=== PATIENT | male | born 2005 | race Caucasian/White ===

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

== ENCOUNTER → 2025-05-25 | Outpatient (CLI) | payer OTHER | LOC: ORTHO 02:10 | PROVIDERS: ATTEND Orthopaedic Surgery | DX: M25.532 Pain in left wrist (principal); M25.531 Pain in right wrist ==

== ENCOUNTER → 2025-06-09 | Day surgery (SDC) | payer OTHER ==
[~2025-06-09] VITALS: Ht 170.1 cm; Wt 93.0 kg
[~2025-06-09] MED LIST changes: +Lidocaine Hydrochloride 30 ML VIAL ONE; +Lidocaine Hydrochloride 5 ML VIAL IV ONE; +Midazolam Hydrochloride 2 MG/2 ML VIAL IV ONE; +PROPOFOL 200 MG/20 ML VIAL IV ONE; +ceFAZolin sodium 1GM/10ML IV SCH; +ceFAZolin sodium/sodium chlor 10 ML IV ONE
[2025-06-09 06:46] VITALS: BP 132/69
[2025-06-09 07:57] VITALS: BP 100/42
[2025-06-09 08:12] VITALS: BP 97/48
[2025-06-09 08:27] VITALS: BP 118/46
== END | disposition home or self-care (01) ==
LOC: SDC 06-07 08:00
PROVIDERS: ATTEND Orthopaedic Surgery
DX: G56.01 Carpal tunnel syndrome, right upper limb (principal); J45.909 Unspecified asthma, uncomplicated; Z98.890 Other specified postprocedural states; Z79.899 Other long term (current) drug therapy; Z88.8 Allergy status to other drugs, medicaments and biological substances